=== PATIENT | female | born 1980 | race American Indian/Alaskan Native ===

== ENCOUNTER 2017-03-17 08:51 | Outpatient (CLI) | payer OTHER ==
--- NOTE | 2017-03-17 09:30 | XRay Report ---
X-RAY BILATERAL THREE VIEWS EACH: 03/17/17 08:51:00 CLINICAL: Knee pain. FINDINGS: Mild osteopenia. Normal alignment. No fracture. Mild bilateral patellofemoral joint osteoarthritis but otherwise normal joint spaces. No joint effusion. Normal soft tissues. IMPRESSION: Mild bilateral osteopenia and bilateral mild patellofemoral joint arthritis. Otherwise normal knees.
== END 2017-03-17 08:52 | disposition home or self-care (01) ==
LOC: SPVIMAG 08:51
PROVIDERS: ATTEND Orthopaedic Surgery
DX: M17.0 Bilateral primary osteoarthritis of knee (principal); M85.88 Other specified disorders of bone density and structure, other site